=== PATIENT | female | born 1990 | race Caucasian/White ===

== ENCOUNTER → 2017-09-04 14:45 | Observation (INO) ==
--- NOTE | 2017-09-04 13:29 | OB/GYN Progress Note ---
Date of Encounter: 09/04/17 Time of Encounter: 13:25 - Assessment and Plan (1) Encounter for suspected PROM, with rupture of membranes not found Current Visit: Yes Status: Acute Nitrazine and ferning negative. May discharge patient home with labor and when to return to triage instructions, follow-up with OB provider as scheduled (2) 30 weeks gestation of Current Visit: Yes Status: Acute Subjective - Subjective Interval history: 30 weeks gestation presents to triage for evaluation of suspected rupture membranes. Patient states her she was awakened about 2:30 AM this morning by her significant other and told that the bed was wet. Patient states she then went to the restroom and had fluid trickling down her leg. Patient states no leaking of fluid since then. Reports good movement, denies vaginal bleeding. Patient does complain of back pain, which she has had throughout , with occasional cramping. Recent states she has had consistent care with provider in [place], just relocated to the [facility] Antepartum ROS: loss of fluid, movement normal, contractions, no vaginal bleeding Objective - Exam Abdomen: Present: normal appearance, soft, gravid Uterus: Present: normal Cervical dilation: Closed/thick/high/firm
[2017-09-04 15:03] LABS: Amphetamine Screen,Urine Negative ng/mL (Cutoff=1000); Barbiturate Screen,Urine Negative ng/mL (Cutoff=200); Benzodiazepines Screen,Urine Negative ng/mL (Cutoff=200); Cannabinoid Screen,Urine Negative ng/mL (Cutoff = 50); Cocaine Screen,Urine Negative ng/mL (Cutoff= 300); Opiate Screen,Urine Negative ng/mL (Cutoff=300); Phencyclidine Screen,Urine Negative ng/mL (Cutoff=25)
== END | disposition home or self-care (01) ==
LOC: 1NENULAB
PROVIDERS: ADMIT Student in an Organized Health Care Education/Training Program; ATTEND Student in an Organized Health Care Education/Training Program

== ENCOUNTER → 2017-10-16 18:53 | Observation (INO) ==
[2017-10-16 17:43] LABS: Bilirubin,Urine Negative (Negative); Blood,Urine Negative (Negative); Clarity,Urine Cloudy (Clear); Glucose,Urine (UA) Normal (Normal); Ketones,Urine Negative (Negative); Leukocyte Esterase,Urine Small (Negative); Nitrite,Urine Negative (Negative); Protein,Urine Trace mg/dL (Neg-Trace); Specific Gravity,Urine 1.028 (1.010-1.025); Urobilinogen,Urine Normal (Normal)
[2017-10-16 17:45] LABS: Bacteria,Urine Many per hpf (None-Few); Squamous Epithelial Cell,Urine Many per lpf (None-Few); WBC,Urine 30-50 per hpf (0-3)
[2017-10-16 17:47] LABS: Color,Urine Yellow (Yellow)
[2017-10-16 18:10] LABS: Amphetamine Screen,Urine Negative ng/mL (Cutoff=1000); Barbiturate Screen,Urine Negative ng/mL (Cutoff=200); Benzodiazepines Screen,Urine Negative ng/mL (Cutoff=200); Cannabinoid Screen,Urine Negative ng/mL (Cutoff = 50); Cocaine Screen,Urine Negative ng/mL (Cutoff= 300); Opiate Screen,Urine Negative ng/mL (Cutoff=300); Phencyclidine Screen,Urine Negative ng/mL (Cutoff=25)
--- NOTE | 2017-10-16 18:47 | OB/GYN Progress Note ---
Date of Encounter: 10/16/17 Time of Encounter: 18:43 - Assessment and Plan (1) 36 weeks gestation of Current Visit: Yes Status: Acute UA - mild dehydration NST - reactive Zofran Rx for nausea Encouraged oral hydration May use tylenol and benadryl OTC for sleep aid/pain Encouraged chiropractic adjustment for spinal discomfort Discharge home with labor precautions & PIH precautions Follow up in office as scheduled for routine care and PRN Subjective - Subjective Principal diagnosis: Fatigue and contractions Interval history: Ms Han is a at 36 weeks and 2 days that arrives to triage with c/o nausea, lower back pain, fatigue, and lower abdominal cramping x 1 day. She states that she has difficulty falling asleep on a nightly basis. She has had no complications with this . She states positive movement. She denies headache, vision changes, epigastric pain, and leaking of fluid/ bleeding. Antepartum ROS: movement normal, other (spinal/lower back pain) Objective - Vital Signs Vital Signs: Intake and Output 10/16/17 10/16/17 10/16/17 07:59 15:59 23:59 Other: Weight 127.8 kg Patient Weight 10/16/17 23:59 Weight 127.8 kg - Exam FHR: auscultation normal, category 1 FHR comments: no contractions noted Auscultation: bilateral: normal Abdomen: Present: normal appearance, soft, gravid. Absent: tenderness Uterus: Present: normal. Absent: firm Cervical dilation: cl Cervix effacement: thick station: high Comments: No CVA tenderness, tenderness palpable along lower lumbar/sacrum. - Labs Labs: Abnormal lab results Urine Clarity Cloudy (Clear) A 10/16/17 17:29 Ur Specific [place] 1.028 (1.010-1.025) H 10/16/17 17:29 Ur Leukocyte Esterase Small (Negative) H 10/16/17 17:29 Urine Microscopic WBC 30-50 per hpf (0-3) H 10/16/17 17:29 Ur Squamous Epith Cells Many per lpf (None-Few) H 10/16/17 17:29 Urine Bacteria Many per hpf (None-Few) H 10/16/17 17:29 Ur Culture Indicated? NO. (NO) A 10/16/17 17:29
== END | disposition home or self-care (01) ==
LOC: 1NENULAB
PROVIDERS: ADMIT Advanced Practice Midwife; ATTEND Advanced Practice Midwife

== ENCOUNTER 2017-11-11 16:33 | Inpatient (IN) ==
[2017-11-11] MEDS ORDERED: Metoclopramide 10 MG/2 ML VIAL IVP PRN (17:12)
[2017-11-11] MEDS ORDERED: *HR* Nalbuphine 10 MG/ML AMPUL IVP PRN (17:12)
[2017-11-11] MEDS ORDERED: Famotidine 20 MG/2 ML VIAL IVP PRN (17:12)
[2017-11-11] MEDS ORDERED: Naloxone 0.4 MG/ML INJ IVP PRN (17:12)
[2017-11-11] MEDS ORDERED: Ringers Solution, Lactated 1,000 ML IVC SCH (17:15)
--- NOTE | 2017-11-11 17:21 | OB/GYN History & Physical ---
Date of Encounter: 11/11/17 Time of Encounter: 17:21 Assessment and Plan (1) 40 weeks gestation of Current visit: Yes Status: Acute Non reactive NST BPP 8/8 Oligohydramnios with ORIANA 5.6 Cervical exam closed/thick/-2 Admit to labor and delivery for IOL Cervidil ripening Consider intracervical Jade bulb placement Consider Cytotec vs Pitocin after Cervidil Nubain/Epidural at patient request Anticipate vaginal delivery POC per consult Dr. Stafford (2) Oligohydramnios Current visit: Yes Status: Acute Qualifiers: Fetus number: single or unspecified fetus Trimester: third trimester Qualified Code(s): O41.03X0 - Oligohydramnios, third trimester, not applicable or unspecified (3) Non-reactive NST (non-stress test) Current visit: Yes Status: Acute History of Present Illness Chief complaint: Induction of labor HPI: Ms. Han is a 27 year old at 40 weeks and 0 days gestation who was sent to labor and delivery for induction of labor after a non-reactive NST, BPP 8/8 and ORIANA of 5.6. PMH positive for asthma. Patient has a rescue inhaler, states she hasn't used it "in a few months". complicated by obesity. Denies vaginal bleeding, leaking fluid, BEE, visual disturbance and epigastric pain. Reports good movement. labs: A negative GBS negative Rubella non immune Hep B negative Hep C negative HIV negative RPR non reactive Past Med Surg Social Fam HX - Past Medical History Medical history: asthma Psychiatric history: no psych history - Past Surgical History Surgical History: no surgical history - Social History Smoking Status: Former smoker Smokeless Tobacco Status: No Alcohol use: none Drug use: none - Family History Mother Adopted: No Living Status: Still Living Hx Family Cardiac Disorders: Yes (heart disease) Hx Family Respiratory Disorders: No Hx Family Cancer: No Hx Family GI Disorders: No Hx Family Endocrine Disorder: Yes (diabetes) Hx Family Neuromuscular Disorders: No Hx Family Neurologic Disorders: No Hx Family HEENT Disorders: No Hx Family Autoimmune Disorders: No Obstetrical History - Pregnancies : 1 Para: 0 (0) Term: 0 : 0 Ab's: 0 Livin Medications and Allergies Vitamins 1 tab PO DAILY 09/04/17 [History] Famotidine [Heartburn Prevention] 20 mg PO DAILY 11/11/17 [History] 3 Allergy/AdvReac Type Severity Reaction Status Date / Time Unable to Assess Allergy Unverified 10/16/17 17:17 Review of System OB All systems PM: reviewed and no additional remarkable complaints except as stated Exam - Constitutional Constitutional: well developed, well nourished, no acute distress, morbidly obese - HEENT HEENT: Normocephaly, Mucus Membranes Moist - Neck Neck exam: full ROM, normal inspection - Lungs Respiratory exam: CTAB - Cardiovascular Cardiovascular exam: RRR - Abdomen Abdomen: Present: bowel sounds normal - Extremities Extremities exam: normal capillary refill, normal inspection, pedal edema (2+), radial pulses palpable and symmetrical Deep Tendon Reflex Grade: 1+ Diminished - Cervix Dilation: 0 Effacement: 0 Station: -2 - Uterus Uterus exam: Present: normal size Results Result Diagrams: 11/11/17 17:16 All other labs normal. - VTE Reasons for not Prescribing Prophylaxis: Treatment not Indicated - Low risk for VTE
[2017-11-11 17:36] LABS: Basophils % 0.2 %; Eosinophils # 0.1 K/mcL (0.0-0.6); Eosinophils % 0.6 %; Hematocrit 35.9 % (35.3-44.9); Hemoglobin 12.4 g/dL (11.5-15.4); Immature Granulocytes % 0.8 % (0-4); Lymphocytes # 1.7 K/mcL (0.6-4.6); Mean Corpuscular HGB Conc 34.5 g/dL (31.6-35.5); Mean Corpuscular Hemoglobin 30.3 pg (28.0-33.3); Mean Corpuscular Volume 87.8 fL (83.0-100.0); Mean Platelet Volume 11.3 fL (9.4-12.4); Monocytes # 0.5 K/mcL (0.0-1.3); Monocytes % 5.6 %; Neutrophils # 7.2 K/mcL (1.6-8.9); Platelet Count 196 K/mcL (140-400); Red Blood Count 4.09 M/mcL (3.82-4.97); Red Cell Distribution Width 14.6 % (11.5-14.5); Segmented Neutrophils % 74.8 %
[2017-11-11 17:40] LABS: Amphetamine Screen,Urine Negative ng/mL (Cutoff=1000); Barbiturate Screen,Urine Negative ng/mL (Cutoff=200); Benzodiazepines Screen,Urine Negative ng/mL (Cutoff=200); Cannabinoid Screen,Urine Negative ng/mL (Cutoff = 50); Cocaine Screen,Urine Negative ng/mL (Cutoff= 300); Opiate Screen,Urine Negative ng/mL (Cutoff=300); Phencyclidine Screen,Urine Negative ng/mL (Cutoff=25)
[2017-11-11] MEDS ORDERED: EPHEDrine 50 MG/ML VIAL IVP PRN (18:05)
[2017-11-11] MEDS ORDERED: Epidural Premix (fent/bupiv) 110 ML EP SCH (18:15)
--- NOTE | 2017-11-11 18:19 | Anesthesia Evaluation PreOp ---
Date of Encounter: 11/11/17 Time of Encounter: 18:16 - Past History Planned Operation: vaginal del, G1 induction (40wks- non RT str) Cardiac History: Denies any Significant Hx Pulmonary History: Asthma (one flare-up during preg. good response to albuteral) SOFT BOARDER History: Denies Any Significant HX Other Medical History: Denies Any Significant HX Anesthesia History: No Prior Anesthetic Complications (no family hx.) Alcohol Use: none Drug use: none Medications and Allergies Vitamins 1 tab PO DAILY 09/04/17 [History] Famotidine [Heartburn Prevention] 20 mg PO DAILY 11/11/17 [History] 3 Allergy/AdvReac Type Severity Reaction Status Date / Time Unable to Assess Allergy Unverified 10/16/17 17:17 Anesthesia Results - Labs 11/11/17 17:16 Anesthesia Exam - HEENT Pupil (Motor): Pupils equal Mallampati: II Teeth: Normal Oral Opening: Greater than 3 - SOFT BOARDER LOC: Oriented SOFT BOARDER Motor: Normal RUE, Normal LUE, Normal RLE, Normal LLE, Normal Face SOFT BOARDER Sensory: Normal: RUE, LUE, RLE, LLE, Face - Cardiac Rhythm: Regular Murmur: None - Pulmonary Breath Sounds: bilateral Clear Respiratory Effort: Symmetrical Anesthesia Assess/Plan ASA Score: 3 (MO) Modified Ronel Scale for Level of Consciousness: Cooperative, oriented, and tranquil Anesthetic Plan: General, Regional Monitoring Plan: Standard Monitors Recovery Plan: PACU
[2017-11-12] MEDS ORDERED: Epidural Premix (fent/bupiv) 110 ML EP ONE (07:06)
[2017-11-12] MEDS ORDERED: Lidocaine -MPF 2% 5 ML VIAL ONE (07:07)
--- NOTE | 2017-11-12 07:34 | Anesthesia Procedures ---
Date of Encounter: 11/12/17 Time of Encounter: 07:15 Procedures: Anesthesia - Epidural/Spinal Patient ID/Chart reviewed: Yes Patient examined: Yes OB Eval: Gestational age: term OB Eval: : 1 OB Eval: Contractions: Non-stressed pattern Consent Obtained: Yes Supplemental Oxygen: None/Room Air Site Prep: Aseptic Technique, Sterile prep and drape, 0.5% Chlorhexidine/Alcohol Patient position: upright Local Anesthetic: Lidocaine 1% Amount of Local Anesthetic used: 2 Touhy Needle Gauge: 18 Touhy Needle Depth (cm): 7 Catheter Depth at Skin (cm): 12 Test Dose (1.5% Lido + Epi): Volume given (mls): 3 Test Dose Result: Negative Loading Dose: Other: 12ml from solution Loading Dose Administered: Thru Catheter Infusion Med: 0.125% Bupivacaine w/ 2 mcg/ml Fentanyl Infusion Rate (mls/hr): [address]: Tegaderm, Tape Interspace Used: L3-L4 Loss of Resistance (GENIE): Yes (saline) Blood: No CSF: No Paresthesia: No Procedure: vss though out procedure, FHR stable per RN's
--- NOTE | 2017-11-12 10:18 | OB Labor Progress Note ---
Date of Encounter: 11/12/17 Time of Encounter: 10:16 Labor Progress Note - Subjective Subjective: Comfortable with epidural, family at bedside. Discussed placement of Jade bulb , patient agreeable. - Cervix Cervix: 1/90/-3 - Heart Tones Heart Tones: FHR 135, Category 1 - [place]: Ctxs every 2-5 minutes per toco - Interventions Interventions: Jade bulb insterted using sterile - Plan Plan: Continue routine intrapartum care Consider Cytotec vs Pitocin Anticipate vaginal delivery
[2017-11-12] MEDS ORDERED: miSOPROStol 100 MCG TABLET PO STA (12:50)
[2017-11-12] MEDS: Ondansetron 4 MG/2 ML VIAL IVP PRN ×2 (14:47→21:22)
[2017-11-12] MEDS: Oxytocin 20 units/ LR 1000 mL 20 UNIT/1,000 ML BAG IVC SCH (18:36)
--- NOTE | 2017-11-12 20:29 | OB Labor Progress Note ---
Date of Encounter: 11/12/17 Time of Encounter: 20:26 Labor Progress Note - Subjective Subjective: Pt comfortable with epidural. - Cervix Cervix: 4-5/100/-1 - Heart Tones Heart Tones: Category I - [place]: 2-4 minutes - Interventions Interventions: AROM for moderate amount clear fluid. IUPC and FSE placed. - Plan Plan: Continue to monitor. Anticipate .
[2017-11-13] MEDS ORDERED: *HR* FentaNYL (PF) 100 MCG/2 ML VIAL ONE ×3 (02:06→13:15)
[2017-11-13] MEDS ORDERED: Bupivacaine-MPF 0.25% 10 ML VIAL ONE ×2 (02:06→05:48)
--- NOTE | 2017-11-13 07:24 | OB Labor Progress Note ---
Date of Encounter: 11/13/17 Time of Encounter: 07:23 Labor Progress Note - Subjective Subjective: Pt reports pelvic pressure - Cervix Cervix: 9.5cm per RN - Heart Tones Heart Tones: Category II, occassional variable decelerations - [place] Browns: Q 2 minutes - Plan Plan: Anticipate .
[2017-11-13] MEDS ORDERED: Lidocaine/EPI 1:200k 2% PF 20 ML VIAL ONE (07:38)
[2017-11-13] MEDS ORDERED: *HR* ROPIVACAINE 1% PF 100 MG/10 ML VIAL ONE (07:38)
[2017-11-13] MEDS ORDERED: *HR* FentaNYL (PF) 100 MCG/2 ML VIAL IVP ONE (13:13)
[2017-11-13] MEDS: Oxytocin 20 units/ LR 1000 mL 20 UNIT/1,000 ML BAG IVC SCH (13:40)
--- NOTE | 2017-11-13 14:46 | OB/GYN Procedure Note ---
Delivery - Delivery Date: 11/13/17 Provider: Bina Pelayo Intrapartum events: prolonged labor- > = 20hr, oligohydramnios Delivery induction: AROM, oxytocin, iverson, misoprostol, cervidil Delivery monitor: external FHT, external uterine, internal FHT, internal uterine Anesthesia: local, epidural Quantitated Blood Loss: 400 - (s) A Delivery Date: 11/13/17 Delivery Time: 11:57 Presentation: vertex Position: OP Route of delivery: Gender: Male Viability: Viable Pounds: 7 Ounces: 11 at 1 minute: 8 at 5 mins: 9 Shoulder Dystocia: not encountered Specimens collected: cord blood Placenta: partial extraction Cord: nuchal cord, delivered through nuchal - Repair Episiotomy: none Laceration Description: Perineal - 2nd Degree - Complications Delivery complications: none Delivery comments: Induction of labor for oligo. Progressed to complete. Maternal bearing down efforts to of liveborn male. Vertex delivered OP, nuchal cord identified shoulders and body quickly followed as delivered through nuchal cord. Vigorous placed on maternal abdomen Apgars 8/9. Second-degree perineal laceration repaired with 3-0 Monocryl suture. Placenta still had not delivered after one hour, Dr. Hwang called to room, for assistance with placental extraction. Patient medicated with 100 g of fentanyl for placental extraction. Placenta delivered, complete upon inspection. Fundus massaged until firm and Pitocin started per policy EBL 400 - Disposition Mom disposition: stable in LDR disposition: stable in LDR - Comments Comments: Called to room to deliver placenta that had not delivered 60 minutes after the baby. Patient was given 50 mcg of Fentanyl IV and placenta was extracted from the vagina without difficulty. Placenta examined and is complete and intact with minimal bleeding.
[2017-11-13] MEDS ORDERED: *HR* HYDROcodone/Acet 5/325 mg TABLET PO PRN (15:37)
[2017-11-13] MEDS ORDERED: Lanolin 7 G OINT...G. TP PRN (15:37)
[2017-11-13] MEDS ORDERED: Oxytocin 20 units/ LR 1000 mL 20 UNIT/1,000 ML BAG IVC SCH (15:37)
[2017-11-13] MEDS ORDERED: Acetaminophen 325 MG TABLET PO PRN (15:37)
[2017-11-13] MEDS ORDERED: Rho Immune Globulin 1,500 UNIT SYRINGE IM PRN (15:37)
[2017-11-13] MEDS ORDERED: Benzocaine/Menthol 56 GM AEROSOL SPRAY TP PRN (15:37)
[2017-11-13] MEDS ORDERED: Ibuprofen 600 MG TABLET PO PRN (15:37)
[2017-11-13] MEDS ORDERED: Measles/Mumps/Rubella Vacc 0.5 ML VIAL SQ PRN (15:37)
--- NOTE | 2017-11-13 23:47 | Event Note ---
Date of Encounter: 11/13/17 Time of Encounter: 11:15 Called to room by RN. Pt states she has lost her central vision in bilateral eyes, left worse than right, still has peripheral vision. Denies headache,or dizziness while sitting or standing, normotensive, PERRLA, hand and pedal strength equal bilat. No other signs. Pt has not slept in over [address] Jaiden schmid in AM, at this time no need for further consult and testing. Will check vitals and neuro x2.
[2017-11-14 04:46] LABS: Basophils % 0.3 %; Eosinophils # 0.1 K/mcL (0.0-0.6); Eosinophils % 1.2 %; Hematocrit 27.1 % (35.3-44.9); Immature Granulocytes % 0.9 % (0-4); Lymphocytes # 2.5 K/mcL (0.6-4.6); Lymphocytes % 20.3 %; Mean Corpuscular HGB Conc 33.9 g/dL (31.6-35.5); Mean Corpuscular Hemoglobin 30.6 pg (28.0-33.3); Mean Platelet Volume 11.3 fL (9.4-12.4); Monocytes # 0.8 K/mcL (0.0-1.3); Monocytes % 6.9 %; Neutrophils # 8.6 K/mcL (1.6-8.9); Platelet Count 160 K/mcL (140-400); Red Blood Count 3.01 M/mcL (3.82-4.97); Red Cell Distribution Width 14.7 % (11.5-14.5); Segmented Neutrophils % 70.4 %
[2017-11-14 04:56] LABS: Hemoglobin 9.2 g/dL (11.5-15.4)
[2017-11-14 08:26] VITALS: BP 133/80
[2017-11-14] MEDS ORDERED: Prenatal Vit/FA 1 EACH TABLET PO SCH (09:00)
--- NOTE | 2017-11-14 09:22 | Discharge Summary ---
Date of Encounter: 11/14/17 Time of Encounter: 09:18 - Discharge Diagnosis (1) Vaginal delivery Priority: Primary Status: Acute Comments: Continue routine care discharge home today follow up with CNM in 4 weeks (2) Breast feeding status of mother Priority: Secondary Status: Acute Comments: support prn - Discharge Medications Prescriptions: Ibuprofen [Motrin] 600 mg PO Q6HR PRN #60 tablet PRN Reason: Cramping Breast Pump [BREAST PUMP] 1 each .ROUTE AD #1 each Home Medications: Vitamins 1 tab PO DAILY 09/04/17 [History] Benzocaine/Menthol [place] [Dermoplast [place]] 1 appl TP QID PRN aerosol 11/14/17 [Rx] Breast Pump [BREAST PUMP] 1 each .ROUTE AD #1 each 11/14/17 [Rx] Hydrocortisone/Pramoxine [Epifoam] 1 appl TP TID bottle 11/14/17 [Rx] Ibuprofen [Motrin] 600 mg PO Q6HR PRN #60 tablet 11/14/17 [Rx] Lanolin [Lansinoh] 1 appl TP QID PRN oint...g. 11/14/17 [Rx] Vit/FA 1 each PO DAILY tablet 11/14/17 [Rx] Allergies/Adverse Reactions: 3 Allergy/AdvReac Type Severity Reaction Status Date / Time Unable to Assess Allergy Verified 11/12/17 13:59 Data Procedures and tests throughout hospitalization: Laboratory Tests 11/11/17 11/11/17 11/13/17 17:16 17:16 13:35 WBC 9.6 RBC 4.09 Hgb 12.4 Hct 35.9 MCV 87.8 MCH 30.3 MCHC 34.5 RDW 14.6 H Plt Count 196 MPV 11.3 Immature Gran % 0.8 Seg Neutrophils % 74.8 Lymphocytes % 18.0 Monocytes % 5.6 Eosinophils % 0.6 Basophils % 0.2 Neutrophils # 7.2 Lymphocytes # 1.7 Monocytes # 0.5 Eosinophils # 0.1 Basophils # 0.0 Urine Opiates Screen Negative Ur Barbiturates Screen Negative Ur Phencyclidine Scrn Negative Ur Amphetamines Screen Negative U Benzodiazepines Scrn Negative Urine Cocaine Screen Negative U Marijuana (THC) Screen Negative Ur Drug Screen Interp See Below Baby's Blood Type O RH NEGATIVE Mother's Blood Type A RH NEGATIVE Rhogam Indicated NO 11/14/17 04:12 WBC 12.1 H RBC 3.01 L Hgb 9.2 L D Hct 27.1 L MCV 90.0 MCH 30.6 MCHC 33.9 RDW 14.7 H Plt Count 160 MPV 11.3 Immature Gran % 0.9 Seg Neutrophils % 70.4 Lymphocytes % 20.3 Monocytes % 6.9 Eosinophils % 1.2 Basophils % 0.3 Neutrophils # 8.6 Lymphocytes # 2.5 Monocytes # 0.8 Eosinophils # 0.1 Basophils # 0.0 Urine Opiates Screen Ur Barbiturates Screen Ur Phencyclidine Scrn Ur Amphetamines Screen U Benzodiazepines Scrn Urine Cocaine Screen U Marijuana (THC) Screen Ur Drug Screen Interp Baby's Blood Type Mother's Blood Type Rhogam Indicated Labs on day of discharge: Labs from last 24 hours 11/14/17 11/13/17 04:12 13:35 WBC 12.1 H RBC 3.01 L Hgb 9.2 L D Hct 27.1 L MCV 90.0 MCH 30.6 MCHC 33.9 RDW 14.7 H Plt Count 160 MPV 11.3 Immature Gran % 0.9 Seg Neutrophils % 70.4 Lymphocytes % 20.3 Monocytes % 6.9 Eosinophils % 1.2 Basophils % 0.3 Neutrophils # 8.6 Lymphocytes # 2.5 Monocytes # 0.8 Eosinophils # 0.1 Basophils # 0.0 Baby's Blood Type O RH NEGATIVE Mother's Blood Type A RH NEGATIVE Rhogam Indicated NO Date of admission: 11/11/17 16:33 Primary care physician: PCP NONE Consults: 11/13/17 15:37 Consult to Senior Integration Developer [CONS] Routine Comment: Vaginal delivery, consult needed Discharging clinician: Luanne Godwin Anticipated date of discharge: 11/14/17 - Patient Status Disposition: Home, Self-Care Condition: Good Functional capacity at discharge: independent ambulation - Discharge Instructions Follow Up With: NONE,PCP [Primary Care Provider] - Luanne Godwin CNM [Non-Partnered Physician] - - Diet and Activity Activity: increase activity as tolerated Diet: regular diet Hospital Course Reason for admission: induction of labor Delivery: Episiotomy: none complications: retained placenta Discharge diagnosis: IUP at term delivered [place] baby: male (breast feedin) Time Attestation: Total time spent providing and/or coordinating discharge services: Time Spent: Less than 30 minutes Exam - Constitutional Vitals: Temp Pulse Resp BP Pulse Ox 97.8 F 93 18 133/80 97 11/14/17 07:30 11/14/17 07:30 11/14/17 07:30 11/14/17 07:30 11/14/17 03:10 General appearance IM: A&O X 3, pleasant, answers questions appropriately - Respiratory Respiratory exam: Present: CTAB - Cardiovascular Cardiovascular exam IM: Present: RRR, +S1, +S2 - GI/Abdominal GI/Abdominal exam IM: normal bowel sounds - Uterine Tone: Firm Uterus Position: 1 Finger Below Umbilicus, Midline - Extremities Exam Extremities exam IM: Present: full ROM, normal capillary refill, normal inspection - Neurological Exam Neurological exam: alert, oriented X3, reflexes normal
== END 2017-11-14 14:00 | disposition home or self-care (01) | DRG 560 ==
LOC: 1NENULAB 16:33 → 1NENUOBS 11-13 15:36
PROVIDERS: ADMIT Obstetrics & Gynecology; ATTEND Obstetrics & Gynecology

== ENCOUNTER 2019-02-21 06:00 | Inpatient (IN) ==
[2019-02-21] MEDS ORDERED: Metoclopramide 10 MG/2 ML VIAL IVP PRN (06:08)
[2019-02-21] MEDS ORDERED: Famotidine 20 MG/2 ML VIAL IVP PRN (06:08)
[2019-02-21] MEDS ORDERED: Lidocaine 1% 20 ML MDV INFILT PRN (06:08)
[2019-02-21] MEDS ORDERED: *HR* Nalbuphine 10 MG/ML AMPUL IVP PRN (06:08)
[2019-02-21] MEDS ORDERED: Naloxone 0.4 MG/ML INJ IVP PRN (06:08)
[2019-02-21] MEDS ORDERED: Ringers Solution, Lactated 1,000 ML IVC SCH (06:15)
[2019-02-21 06:42] LABS: Basophils % 0.4 %; Eosinophils # 0.2 K/mcL (0.0-0.6); Eosinophils % 2.1 %; Hematocrit 34.7 % (35.3-44.9); Hemoglobin 11.9 g/dL (11.5-15.4); Lymphocytes # 2.4 K/mcL (0.6-4.6); Lymphocytes % 23.5 %; Mean Corpuscular HGB Conc 34.3 g/dL (31.6-35.5); Mean Corpuscular Hemoglobin 30.6 pg (28.0-33.3); Mean Corpuscular Volume 89.2 fL (83.0-100.0); Mean Platelet Volume 11.1 fL (9.4-12.4); Monocytes # 0.7 K/mcL (0.0-1.3); Monocytes % 6.3 %; Neutrophils # 6.9 K/mcL (1.6-8.9); Platelet Count 161 K/mcL (140-400); Red Blood Count 3.89 M/mcL (3.82-4.97); Red Cell Distribution Width 14.8 % (11.5-14.5); Segmented Neutrophils % 66.7 %; White Blood Count 10.3 K/mcL (4.3-11.1)
[2019-02-21 06:53] LABS: Amphetamine Screen,Urine Negative ng/mL (Cutoff=1000); Barbiturate Screen,Urine Negative ng/mL (Cutoff=200); Benzodiazepines Screen,Urine Negative ng/mL (Cutoff=300); Cannabinoid Screen,Urine Negative ng/mL (Cutoff = 50); Cocaine Screen,Urine Negative ng/mL (Cutoff= 300); Opiate Screen,Urine Negative ng/mL (Cutoff=300); Phencyclidine Screen,Urine Negative ng/mL (Cutoff=25)
[2019-02-21] MEDS ORDERED: Epidural Premix (fent/bupiv) 110 ML EP SCH (07:30)
[2019-02-21] MEDS ORDERED: miSOPROStol 25 MCG TABLET PO SCH (08:00)
[2019-02-21] MEDS ORDERED: Oxytocin 20 units/ LR 1000 mL 20 UNIT/1,000 ML BAG IVC ONE (15:41)
[2019-02-21] MEDS ORDERED: Benzocaine/Menthol 56 GM AEROSOL SPRAY TP PRN (19:40)
[2019-02-21] MEDS ORDERED: Oxytocin 20 units/ LR 1000 mL 20 UNIT/1,000 ML BAG IVC SCH (19:40)
[2019-02-21] MEDS ORDERED: Acetaminophen 325 MG TABLET PO PRN (19:40)
[2019-02-21] MEDS ORDERED: Measles/Mumps/Rubella Vacc 0.5 ML VIAL SQ PRN (19:40)
[2019-02-21] MEDS ORDERED: Rho Immune Globulin 1,500 UNIT SYRINGE IM PRN (19:40)
[2019-02-22 07:46] VITALS: BP 124/87
[2019-02-22] MEDS: Ibuprofen 600 MG TABLET PO PRN ×2 (08:04→14:23)
[2019-02-22] MEDS ORDERED: Prenatal Vit/FA 1 EACH TABLET PO SCH (09:00)
[2019-02-22] MEDS ORDERED: Loratadine 10 MG TABLET PO SCH (09:00)
== END 2019-02-22 18:10 | disposition home or self-care (01) | DRG 560 ==
LOC: 1NENULAB 06:07 → 1NENUOBS 20:11
PROVIDERS: ADMIT Advanced Practice Midwife; ATTEND Advanced Practice Midwife

== ENCOUNTER 2019-12-26 12:28 | Observation (INO) ==
[2019-12-26] MEDS ORDERED: Prochlorperazine 10 MG/2 ML VIAL IVP ONE (13:29)
[2019-12-26] MEDS ORDERED: Ringers Solution, Lactated 1,000 ML IVC ONE (13:35)
[2019-12-26 13:36] LABS: Basophils % 0.4 %; Eosinophils # 0.2 K/mcL (0.0-0.6); Eosinophils % 1.9 %; Hematocrit 34.7 % (35.3-44.9); Hemoglobin 11.4 g/dL (11.5-15.4); Immature Granulocytes % 0.9 % (0-4); Lymphocytes # 1.6 K/mcL (0.6-4.6); Lymphocytes % 19.3 %; Mean Corpuscular HGB Conc 32.9 g/dL (31.6-35.5); Mean Corpuscular Hemoglobin 30.3 pg (28.0-33.3); Mean Corpuscular Volume 92.3 fL (83.0-100.0); Mean Platelet Volume 10.9 fL (9.4-12.4); Monocytes # 0.6 K/mcL (0.0-1.3); Monocytes % 6.5 %; Platelet Count 128 K/mcL (140-400); Red Blood Count 3.76 M/mcL (3.82-4.97); Red Cell Distribution Width 14.6 % (11.5-14.5); White Blood Count 8.5 K/mcL (4.3-11.1)
[2019-12-26 13:52] LABS: Bacteria,Urine Few per hpf (None-Few); Bilirubin,Urine Negative (Negative); Blood,Urine Negative (Negative); Clarity,Urine Turbid (Clear); Color,Urine Yellow (Yellow); Glucose,Urine (UA) Normal (Normal); Ketones,Urine Negative (Negative); Leukocyte Esterase,Urine Trace (Negative); Mucus,Urine Few per lpf (None-Few); Nitrite,Urine Negative (Negative); PH,Urine 6.5 pH Units (5.0-8.0); Protein,Urine Trace mg/dL (Neg-Trace); RBC,Urine 0-3 per hpf (0-3); Specific Gravity,Urine 1.024 (1.010-1.025); Squamous Epithelial Cell,Urine Moderate per hpf (None-Few); Urobilinogen,Urine Normal (Normal); WBC,Urine 0-3 per hpf (0-3)
[2019-12-26 13:54] LABS: Alanine Aminotransferase 19 Units/L (7-52); Aspartate Amino Transferase 17 Units/L (13-39); BUN/Creatinine Ratio 15 (6-26); Blood Urea Nitrogen 9 mg/dL (6-20); Lactate Dehydrogenase 103 Units/L (140-271); Uric Acid 3.7 mg/dL (2.3-7.6); eGFR For African Americans > 60 (> 60); eGFR For Non-African Americans > 60 (> 60)
[2019-12-26 15:59] LABS: Protein/Creatinine Ratio,Urine 0.17 mg/mg (0.00-0.20)
== END 2019-12-26 15:45 | disposition home or self-care (01) ==
LOC: 1NENULAB
PROVIDERS: ADMIT Registered Nurse; ATTEND Registered Nurse

== ENCOUNTER 2020-01-04 09:50 | Inpatient (IN) ==
[2020-01-04] MEDS ORDERED: Metoclopramide 10 MG/2 ML VIAL IVP PRN (10:01)
[2020-01-04] MEDS ORDERED: Famotidine 20 MG/2 ML VIAL IVP PRN (10:01)
[2020-01-04] MEDS ORDERED: Azithromycin 500 MG in 0.9 % Sodium Chloride 250 ML IVPB ONE (10:01)
[2020-01-04] MEDS ORDERED: Naloxone 0.4 MG/ML INJ IVP PRN (10:01)
[2020-01-04] MEDS ORDERED: *HR* FentaNYL (PF) 100 MCG/2 ML VIAL IVP PRN (10:01)
[2020-01-04] MEDS ORDERED: Ondansetron 4 MG/2 ML VIAL IVP PRN (10:01)
[2020-01-04] MEDS ORDERED: miSOPROStoL 25 MCG TABLET PO PRN (10:04)
[2020-01-04 10:45] LABS: Basophils % 0.4 %; Bilirubin,Urine Negative (Negative); Blood,Urine Negative (Negative); Clarity,Urine Clear (Clear); Color,Urine Yellow (Yellow); Eosinophils # 0.1 K/mcL (0.0-0.6); Eosinophils % 1.7 %; Glucose,Urine (UA) Normal (Normal); Hematocrit 35.9 % (35.3-44.9); Hemoglobin 11.8 g/dL (11.5-15.4); Immature Granulocytes % 0.9 % (0-4); Ketones,Urine Negative (Negative); Leukocyte Esterase,Urine Negative (Negative); Lymphocytes # 1.7 K/mcL (0.6-4.6); Lymphocytes % 20.9 %; Mean Corpuscular HGB Conc 32.9 g/dL (31.6-35.5); Mean Corpuscular Hemoglobin 29.4 pg (28.0-33.3); Mean Corpuscular Volume 89.3 fL (83.0-100.0); Mean Platelet Volume 11.3 fL (9.4-12.4); Monocytes # 0.4 K/mcL (0.0-1.3); Monocytes % 4.7 %; Neutrophils # 5.8 K/mcL (1.6-8.9); Nitrite,Urine Negative (Negative); PH,Urine 6.5 pH Units (5.0-8.0); Platelet Count 152 K/mcL (140-400); Protein,Urine Trace mg/dL (Neg-Trace); Red Blood Count 4.02 M/mcL (3.82-4.97); Red Cell Distribution Width 14.5 % (11.5-14.5); Segmented Neutrophils % 71.4 %; Urobilinogen,Urine Normal (Normal); White Blood Count 8.2 K/mcL (4.3-11.1)
[2020-01-04 10:52] LABS: Amphetamine Screen,Urine Negative ng/mL (Cutoff=1000); Barbiturate Screen,Urine Negative ng/mL (Cutoff=200); Benzodiazepines Screen,Urine Negative ng/mL (Cutoff=200); Cannabinoid Screen,Urine Negative ng/mL (Cutoff = 50); Cocaine Screen,Urine Negative ng/mL (Cutoff= 300); Opiate Screen,Urine Negative ng/mL (Cutoff=300); Phencyclidine Screen,Urine Negative ng/mL (Cutoff=25)
[2020-01-04] MEDS ORDERED: EPHEDrine 50 MG/ML VIAL IVP PRN (11:30)
[2020-01-04] MEDS ORDERED: Famotidine 20 MG/2 ML VIAL IVP ONE (11:50)
[2020-01-04] MEDS: Ringers Solution, Lactated 1,000 ML IVC SCH ×2 (15:31→15:33)
[2020-01-04] MEDS: Epidural Premix (fent/bupiv) 110 ML EP SCH ×2 (16:18→16:19)
[2020-01-04] MEDS ORDERED: Acetaminophen 325 MG TABLET PO PRN (23:23)
[2020-01-04] MEDS ORDERED: Measles/Mumps/Rubella Vacc 0.5 ML VIAL SQ PRN (23:23)
[2020-01-04] MEDS ORDERED: Benzocaine/Menthol 56 GM AEROSOL SPRAY TP PRN (23:23)
[2020-01-04] MEDS ORDERED: Rho Immune Globulin 1,500 UNIT SYRINGE IM PRN (23:23)
[2020-01-04] MEDS ORDERED: Oxytocin 20 units/ LR 1000 mL 20 UNIT/1,000 ML BAG IVC SCH (23:23)
[2020-01-05 01:13] VITALS: BP 125/70
[2020-01-05] MEDS: Ibuprofen 600 MG TABLET PO PRN ×2 (03:52→10:37)
[2020-01-05] MEDS ORDERED: Loratadine 10 MG TABLET PO SCH (09:00)
[2020-01-05] MEDS ORDERED: Prenatal Vit/FA 1 EACH TABLET PO SCH (09:00)
[2020-01-05] MEDS ORDERED: Famotidine 20 MG TABLET PO SCH (09:00)
== END 2020-01-05 19:00 | disposition home or self-care (01) | DRG 560 ==
LOC: 1NENULAB 09:50 → 1NENUOBS 01-05 02:23
PROVIDERS: ADMIT Registered Nurse; ATTEND Registered Nurse